=== PATIENT | male | born 1980 | race Caucasian/White ===

== ENCOUNTER 2022-06-17 09:11 | Emergency (ER) | payer MEDICARE, OTHER ==
[~2022-06-17] VITALS: Ht 157 cm; Wt 104.0 kg
[2022-06-17] MEDS ORDERED: fentaNYL INJ 100 MCG/2 ML AMP IVP ONE (10:00)
[2022-06-17] MEDS ORDERED: fentaNYL INJ 100 MCG/2 ML AMP IM ONE (10:15)
--- NOTE | 2022-06-17 10:46 | Diagnostic Imaging Report ---
CLINICAL HISTORY: Right shoulder pain. Fall. COMPARISON: None. TECHNIQUE: Three views of the right shoulder. FINDINGS: There is no acute fracture or dislocation of the right shoulder. Alignment is anatomic. The imaged joint spaces are preserved. The included right chest is clear. IMPRESSION: 1. No acute fracture or dislocation in the right shoulder. Dictated by: Dictated on workstation # [id number]
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
[2022-06-17] MEDS ORDERED: ACHD5005 PO (11:31)
[2022-06-17 11:38] VITALS: BP 161/111
== END 2022-06-17 11:38 | disposition home or self-care (01) ==
LOC: ER 09:15
DX: S49.91XA Unspecified injury of right shoulder and upper arm, initial encounter (principal); F17.200 Nicotine dependence, unspecified, uncomplicated; Z28.310 Unvaccinated for COVID-19; W18.30XA Fall on same level, unspecified, initial encounter
CPT/HCPCS: 73030